=== PATIENT | male | born 1945 | race Hispanic/Latino ===

== ENCOUNTER 2022-06-09 20:35 | Emergency (ER) | payer MEDICARE ==
[2022-06-10] MEDS ORDERED: MORPHINE 4 MG/1 ML INJ IV ONE (05:00)
[2022-06-10] MEDS ORDERED: ONDANSETRON 4 MG/2 ML INJ IV ONE (05:00)
[2022-06-10] MEDS ORDERED: SODIUM CHLORIDE 0.9% 1000 ML 1,000 ML IV ONE (05:00)
--- NOTE | 2022-06-10 05:06 | Emergency Department Report ---
<[address] - Last Filed: 06/10/22 05:31> ED General Adult HPI - General Chief complaint: Nausea/Vomiting/Diarrhea Stated complaint: CAN'T KEEP ANYTHING DOWN Time Seen by Provider: 06/10/22 04:59 Source: patient, RN notes reviewed Mode of arrival: Ambulatory Limitations: No Limitations - History of Present Illness Initial comments: The patient was evaluated in the emergency department for symptoms described in the history of present illness. He/she was evaluated in the context of the global COVID-19 pandemic, which necessitated consideration that the patient might be at risk for infection with the virus that causes COVID-19. Institutional protocols and algorithms that pertain to the evaluation of patients at risk for COVID-19 are in a state of rapid change based on information released by regulatory bodies including the CDC and federal and state organizations. These policies and algorithms were followed during the patient's care in the emergency department. Please note that these policies, procedures and recommendations changed on a rapid basis. Primary care doctor: Dr. Browne This is a pleasant and cooperative 77-year-old gentleman who denies significant past medical history and abdominal surgical history, who is not COVID-19 vaccinated. He presents to the ER today with a complaint of inability to keep anything down, reports copious nausea and vomiting which started for the past 36 hours. He has mild epigastric abdominal pain. He reports dark-colored urine. He denies additional injuries and complaints. This is never happened to him before. Symptoms worsen when he attempts to eat or drink. -: days(s) Location: abdomen Quality: aching Consistency: intermittent Worsens with: eating - Related Data Previous Rx's Medication Instructions Recorded Last Taken Type Famotidine [Pepcid] 20 mg PO BID #30 tablet 06/10/22 Unknown Rx Omeprazole 20 mg PO DAILY #14 06/10/22 Unknown Rx Allergies Allergy/AdvReac Type Severity Reaction Status Date / Time codeine Allergy Unknown Verified 06/09/22 22:16 Penicillins Allergy Unknown Verified 06/09/22 22:16 strawberry Allergy Unknown Verified 06/09/22 22:16 ED Review of Systems Constitutional: denies: fever Eyes: denies: eye discharge ENT: denies: congestion Respiratory: denies: cough Cardiovascular: denies: chest pain Gastrointestinal: abdominal pain, nausea, vomiting, constipation. denies: diarrhea, hematemesis, melena, hematochezia Genitourinary: denies: dysuria Musculoskeletal: as per HPI Neurological: denies: weakness Psychiatric: as per HPI ED Past Medical Hx - Medications Home Medications: Home Medications Medication Instructions Recorded Confirmed Last Taken Type Famotidine [Pepcid] 20 mg PO BID #30 tablet 06/10/22 Unknown Rx Omeprazole 20 mg PO DAILY #14 06/10/22 Unknown Rx ED Physical Exam - General Limitations: No Limitations General appearance: alert, in no apparent distress - Head Head exam: Present: atraumatic, normocephalic - Eye Eye exam: Present: normal appearance, EOMI. Absent: nystagmus - ENT ENT exam: Present: normal exam, normal orophraynx, mucous membranes moist, normal external ear exam - Neck Neck exam: Present: normal inspection, full ROM. Absent: tenderness, meningismus - Respiratory Respiratory exam: Present: normal lung sounds bilaterally. Absent: respiratory distress, wheezes, rales, rhonchi, stridor, decreased breath sounds - Cardiovascular Cardiovascular Exam: Present: regular rate, normal rhythm, normal heart sounds. Absent: bradycardia, tachycardia, irregular rhythm, systolic murmur, diastolic murmur, rubs, gallop - GI/Abdominal GI/Abdominal exam: Present: soft. Absent: distended, tenderness, guarding, rebound, rigid, pulsatile mass - Rectal Rectal exam: Present: deferred - Extremities Exam Extremities exam: Present: normal inspection, full ROM, normal capillary refill, other (2+ pulses noted in the bilateral upper and lower extremities. There is no palpable cord. negative Homans sign. Muscular compartments are soft. The pelvis is stable.). Absent: calf tenderness - Back Exam Back exam: Present: normal inspection. Absent: tenderness, CVA tenderness (R), CVA tenderness (L), paraspinal tenderness, vertebral tenderness - Neurological Exam Neurological exam: Present: alert, oriented X3, other (No facial droop. Tongue midline. Extraocular movements intact bilaterally. Facial sensation intact to light touch in V1, V2, V3 distribution bilaterally. 5 and a 5 strength in 4 extremities. Sensation intact to light touch in 4 extremities.) - Psychiatric Psychiatric exam: Present: normal affect, normal mood - Skin Skin exam: Present: warm, dry, intact, normal color. Absent: rash ED Course - Reevaluation(s) Reevaluation #1: 06/10/22 05:04 Differential diagnosis, include but not limited to: Obstruction, volvulus, appendicitis, colitis, diverticulitis, renal colic, dehydration Assessment and plan: 77-year-old gentleman presenting with mild abdominal pain, with nausea and vomiting, inability to keep anything down, and not having had a bowel movement or passed gas or flatus for the past day and a half or 2 days. Concerning for obstructive process. N.p.o., head of bed elevation, and aspiration precautions. Place patient on wool fleece sorter, pulse oximeter, place IV, fluids, pain medication, nausea medication. Patient reports he is able to take morphine. He reports no morphine allergy. Check appropriate laboratory studies, EKG, and CT scan of the abdomen pelvis. Reassess after initial diagnostics. I discussed this with the patient. He is agreeable to the plan of care 06/10/22 05:31 Care be transferred to the oncoming ER physician, Dr Lux Denis, to follow-up on labs, CAT scan, and arrange for final disposition ED Medical Decision Making - Lab Data Vital Signs 06/09/22 21:30 Temperature 98.7 F Pulse Rate 77 Respiratory 18 Rate Blood Pressure 139/72 O2 Sat by Pulse 96 Oximetry - EKG Data 06/10/22 05:15 The EKG is interpreted at 05: 04 Sinus rhythm, with a rate of 62 bpm. Left axis deviation, left anterior fascicular block, QTC 4 1 7 ms, borderline right bundle branch block. Motion artifact, abnormal EKG, not a STEMI, there is no prior for comparison - Radiology Data Radiology results: pending ED Disposition Clinical Impression: Nausea and vomiting Disposition: 30 STILL A PATIENT Condition: Good Instructions: Nausea and Vomiting, Adult Referrals: LUCY LOAIZA MD [Staff Physician] - 3-5 Days <JOYCE DENIS - Last Filed: 06/10/22 09:21> ED Review of Systems ROS: Stated complaint: CAN'T KEEP ANYTHING DOWN Other details as noted in HPI ED Course Vital Signs 06/09/22 06/10/22 06/10/22 21:30 08:05 08:09 Temperature 98.7 F 98.9 F Pulse Rate 77 79 Respiratory 18 17 Rate Blood Pressure 139/72 Blood Pressure 140/79 [Left] O2 Sat by Pulse 96 96 97 Oximetry ED Medical Decision Making - Lab Data Result diagrams: 06/10/22 05:22 06/10/22 05:22 - Radiology Data Radiology results: report reviewed, image reviewed - Medical Decision Making pt was handed over to me by Dr street at 6 am , pending CMP and CT , CT showed lesion in dis oesophagus, DD includes FB , aneurysm or chronic inflammation, history from patient suggesting care home GERD, pt is no distress vss, able to tolerate po, will send to GI for Upper GI Critical care attestation.: If time is entered above; I have spent that time in minutes in the direct care of this critically ill patient, excluding procedure time. ED Disposition Is pt being admited?: No Does the pt Need Aspirin: No
[2022-06-10 05:46] LABS: Basophils % (Auto) 0.2 % (0.0-1.8); Hematocrit 45.1 % (35.5-45.6); Hemoglobin 15.3 gm/dl (11.8-15.2); Lymphocytes # (Auto) 1.1 K/mm3 (1.2-5.4); Lymphocytes % (Auto) 10.1 % (13.4-35.0); Mean Corpuscular HGB Conc 34 % (32-34); Mean Corpuscular Volume 91 fl (84-94); Monocytes # (Auto) 0.9 K/mm3 (0.0-0.8); Monocytes % (Auto) 8.2 % (0.0-7.3); Platelet Count 294 K/mm3 (140-440); Red Blood Count 4.95 M/mm3 (3.65-5.03); Red Cell Distribution Width 13.1 % (13.2-15.2)
[2022-06-10 05:54] LABS: INR 0.92 (0.87-1.13)
[2022-06-10 05:55] LABS: Color,Urine Yellow (Yellow)
[2022-06-10 05:56] LABS: Bilirubin,Urine Negative (Negative); Blood,Urine Negative (Negative); Urobilinogen,Urine 0.2 mg/dL (<2.0)
[2022-06-10 05:58] LABS: Mucus,Urine 1+ /HPF
[2022-06-10 06:13] LABS: Alanine Aminotransferase 10 units/L (7-56); Albumin 4.9 g/dL (3.9-5); BUN/Creatinine Ratio 16; Blood Urea Nitrogen 13 mg/dL (9-20); Calcium 9.9 mg/dL (8.4-10.2); Hemolysis Index 10
[2022-06-10 08:10] VITALS: BP 140/79
--- NOTE | 2022-06-10 08:16 | Cat Scan Report ---
CT ABDOMEN AND PELVIS WITH CONTRAST INDICATION / CLINICAL INFORMATION: Acute abdominal pain, with nausea and vomiting. TECHNIQUE: Axial CT images were obtained through the abdomen and pelvis after IV contrast. All CT sc ans at this location are performed using CT dose reduction for ALARA by means of automated exposure c ontrol. COMPARISON: None available. FINDINGS: LOWER CHEST: No significant abnormality. AORTA / ARTERIES: Mild atherosclerotic calcification without acute abnormality. IVC / VEINS: No significant abnormality. LYMPH NODES: No significant adenopathy. COLON: Diverticulosis without acute inflammation. APPENDIX: No significant abnormality. STOMACH / SMALL BOWEL: Within the distal esophagus there is a peripherally calcified lesion. This pia sures approximately 1.9 x 2.2 x 2.3 cm. The stomach and small bowel are without significant abnormali ty. PERITONEUM: No free fluid. No free air. No fluid collection. LIVER: Scattered cysts. GALLBLADDER: No significant abnormality. BILE DUCTS: No significant abnormality. PANCREAS: No significant abnormality. SPLEEN: No significant abnormality. ADRENALS: No significant abnormality. RIGHT KIDNEY / URETER: No significant abnormality. LEFT KIDNEY / URETER: No significant abnormality. URINARY BLADDER: No significant abnormality. REPRODUCTIVE ORGANS: No significant abnormality. SKELETAL SYSTEM: Scattered degeneration. ADDITIONAL FINDINGS: None. IMPRESSION: 1. Within the distal esophagus there is a peripherally calcified lesion of unknown etiology. This les ion appears to be either submucosal or endoluminal. Differential would include swallowed object versu s a aneurysm; however, the center of the lesion does not demonstrate contrast attenuation. Additional ly, this may be sequela of chronic trauma/inflammation. Signer Name: Shaggy Savage DO Signed: 06/10/2022 8:11 AM Workstation Name: [id number]
--- NOTE | 2022-06-10 14:11 | Electrocardiograph Report ---
[facility] Test Date: 2022-06-10 Test Time: 05:04:38 Pat Name: RYLAN DAVIES Department: Room: Gender: M Electronic Engineering Technician: MANDO : 1945 Requested By: [address] Order Number: [id number] Reading MD: Misa Flores Measurements Intervals [place] Rate: 62 P: 64 VT: 186 QRS: -63 QRSD: 108 T: 30 QT: 410 QTc: 417 Interpretive Statements Sinus rhythm Probable left atrial enlargement Incomplete RBBB and LAFB No previous ECG available for comparison Electronically Signed On 06-10-2022 14:11:37 EDT by Misa Flores
== END 2022-06-10 09:38 | disposition still patient (30) ==
LOC: ED 20:35
DX: R11.2 Nausea with vomiting, unspecified (principal); R10.13 Epigastric pain; R19.7 Diarrhea, unspecified; Z91.02 Food additives allergy status; Z88.0 Allergy status to penicillin; Z91.09 Other allergy status, other than to drugs and biological substances; Z79.899 Other long term (current) drug therapy
CPT/HCPCS: 36415; 74177; 80053; 81001; 82550; 83690; 83735; 84484; 85025; 85610; 93005; 96361; 96374; 96375; 99284; J2270; J2405; J7030; Q9967